=== PATIENT | male | born 1945 | race Caucasian/White ===

== ENCOUNTER 2018-11-08 09:07 | Outpatient (REF) | payer MEDICARE, SELFPAY ==
[2018-11-08 21:57] LABS: Calculated LDL 128 mg/dL; Cholesterol 187 mg/dL (50-200); HDL Cholesterol 51 mg/dL (40-60); Triglyceride 41 mg/dL (30-150)
== END 2018-11-08 09:27 ==
LOC: NCHCN 09:07
PROVIDERS: PCP Internal Medicine; Visit Provider Internal Medicine
DX: Z13.6 Encounter for screening for cardiovascular disorders (principal); R69 Illness, unspecified
CPT/HCPCS: 80061; 83721

== ENCOUNTER 2018-11-13 10:47 | Outpatient (REF) | payer MEDICARE, SELFPAY ==
[2018-11-15 09:59] LABS: PSA, Screening 1.7 ng/ml (0-6.5)
[2018-11-15 10:36] LABS: Syphilis Serology (RPR) Negative (Negative)
[2018-11-15 13:32] LABS: Chlamydia Result Negative; GC Result Negative; Specimen Description URINE
[2018-11-16 11:58] LABS: HIV-1/2 Ag & Ab Screen Negative (NEGAT)
== END 2018-11-13 11:07 ==
LOC: NCHCN 10:47
PROVIDERS: PCP Internal Medicine; Visit Provider Internal Medicine
DX: N40.0 Benign prostatic hyperplasia without lower urinary tract symptoms (principal); Z12.5 Encounter for screening for malignant neoplasm of prostate; Z11.3 Encounter for screening for infections with a predominantly sexual mode of transmission; Z11.4 Encounter for screening for human immunodeficiency virus [HIV]
CPT/HCPCS: 84153; 87389; 87491; 87591; 86592

== ENCOUNTER 2020-12-01 17:48 | Outpatient (REF) | payer MEDICARE, SELFPAY ==
[2020-12-01 21:04] LABS: Abs Immature Grans 0.01 10^3/uL (0.0-0.06); Absolute Basophil Count 0.03 10^3/uL (0.0-0.2); Absolute Eosinophil Count 0.24 10^3/uL (0.0-0.7); Absolute Lymphocyte Count 1.85 10^3/uL (1.2-3.4); Absolute Monocyte Count 0.32 10^3/uL (0.1-0.8); Absolute Neutrophil Count 3.09 10^3/uL (1.2-6.7); Basophils % 0.5; Eosinophils % 4.3; HCT 42.2 % (40.0-50.0); HGB 13.8 g/dL (13.5-17.5); Immature Grans % 0.2; Lymphocytes % 33.4; MCH 31.5 pg (27.0-33.0); MCHC 32.7 % (32.0-36.0); MCV 96.3 fL (80-95); MPV 11.6 fL (8.0-11.0); Monocytes % 5.8; Neutrophils % 55.8; Nucleated RBC 0 %; Platelet Count 182 10^3/uL (130-400); RBC 4.38 10^6/uL (4.36-5.78); RDW 12.7 % (11.8-14.1); RDW-SD 44.1 fL; WBC 5.54 10^3/uL (4.4-10.8)
[2020-12-01 21:23] LABS: ALT 25 U/L (16-63); AST 23 U/L (15-37); Albumin 3.5 g/dL (3.4-5.0); Alkaline Phosphatase 99 U/L (46-116); Anion Gap 6.9 mmol/L (3-11); BUN 14 mg/dL (7-18); Bilirubin, Total 0.3 mg/dL (0.2-1.0); CO2 26.1 mmol/L (21.0-32.0); CREATININE 0.9 mg/dL (0.70-1.30); Calcium 9.1 mg/dL (8.5-10.1); Chloride 107 mmol/L (98-107); Glucose 91 mg/dL (74-106); Potassium 4.5 mmol/L (3.5-5.1); Sodium 140 mmol/L (136-145); TSH 1.62 uIU/mL (0.36-3.74); Total Protein 6.6 g/dL (6.4-8.2)
[2020-12-03 12:36] LABS: COVID-19 RT-PCR UVMMC Result Negative (Negative)
== END 2020-12-01 17:49 | disposition home or self-care (01) ==
LOC: NCHCN 17:48
PROVIDERS: PCP Internal Medicine; Visit Provider Internal Medicine
DX: R19.7 Diarrhea, unspecified (principal); J06.9 Acute upper respiratory infection, unspecified; Z20.822 Contact with and (suspected) exposure to COVID-19
CPT/HCPCS: 80053; U0003; U0005; 84443; 85025

== ENCOUNTER 2020-12-02 08:55 | Outpatient (REF) | payer MEDICARE, MEDICAID, SELFPAY ==
[2020-12-02 21:47] LABS: C Diff PCR Negative (Negative)
[2020-12-03 22:17] LABS: Campylobacter PCR Negative (Negative); Salmonella PCR Negative (Negative); Shiga Toxin PCR Negative (Negative); Shigella/Enteroinvasive Ecoli Negative (Negative)
== END 2020-12-02 08:56 | disposition home or self-care (01) ==
LOC: NCHCN 08:55
PROVIDERS: PCP Internal Medicine; Visit Provider Internal Medicine
DX: R19.7 Diarrhea, unspecified (principal)
CPT/HCPCS: 87493; 87505; 87177

== ENCOUNTER 2022-05-19 20:56 | Outpatient (REF) | payer MEDICARE, MEDICAID, SELFPAY ==
[2022-05-19 22:08] LABS: Vitamin B12 530 pg/mL (193-986)
== END 2022-05-19 20:57 | disposition home or self-care (01) ==
LOC: NCHCN 20:56
PROVIDERS: PCP Internal Medicine; Visit Provider Internal Medicine
DX: Z13.0 Encounter for screening for diseases of the blood and blood-forming organs and certain disorders involving the immune mechanism (principal); D51.3 Other dietary vitamin B12 deficiency anemia
CPT/HCPCS: 82607